=== PATIENT | male | born 1950 | race Caucasian/White ===

== ENCOUNTER → 2019-04-12 | Emergency (ER) | payer MEDICARE ==
[~2019-04-12] VITALS: Ht 177.8 cm; Wt 72.7 kg
[~2019-04-12] MED LIST: ISOSORBIDE MONO60 M1 PO; MULTI-DAY VITAM1 TAB PO; NITROQUICK0.4 MG SL; PLAVIX75 MG PO
--- NOTE | ~2019-04-12 | CN ---
PATIENT NAME:PAOLO HOWE MEDICAL RECORD: [id number] : 54 LOCATION:.ER ADMIT DATE: ACCOUNT: [id number] CONSULTING PHYSICIAN: DEMARIO SYLVESTER MD REFERRING PHYSICIAN: KINDRA NELSON MD DATE OF CONSULTATION: 04/12/2019 DIAGNOSES: 1. Unstable angina. 2. Coronary artery disease. 3. Previous multivessel percutaneous transluminal coronary angioplasty stent. 4. Hypertension. 5. Hyperlipidemia. HISTORY OF PRESENT ILLNESS: Mr. Howe has past history of coronary artery disease, previous PTCA stent by Dr. Lopez and PTCA stent by Dr. Hudson in [place]. He has been having 2 months of increasing chest pain, chest discomfort compatible with angina, it is very similar to that he has had in the past prior to needing a stent and his chest discomfort has increased. He is now in the Emergency Room. His last stent, he thinks, was approximately 4 or [address] Hudson. He had a nuclear stress test, for which he had an extremely bad reaction in the past, this has been over 2 years ago he believes. He is pain free currently in the Emergency Room. His EKG is normal. Troponin is normal. PHYSICAL EXAMINATION: GENERAL APPEARANCE: Well-nourished, well-developed, appears stated age. Level of distress, comfortable. PSYCHIATRIC: Mental status, alert, normal affect. Orientation, oriented to time, place and person. EYES: Lids and conjunctiva, noninjected. No discharge, no pallor. ENT: Lips, teeth, gums, normal dentition. Oropharynx, no cyanosis, no pallor. NECK: Carotid arteries, bilateral normal upstroke, no bruits, no thrills. JUGULAR VEINS: No jugular venous pressure or distention. CERVICAL LYMPH NODES: Nontender, nonenlarged. THYROID: Not enlarged. Nontender. No nodules. LUNGS: Respiratory effort, unlabored. CHEST: Normal curvature. No thoracic deformity. No chest wall tenderness. Percussion, resonant. Auscultation, clear. No wheezes, no rales, no rhonchi. CARDIOVASCULAR: Precordial exam, nondisplaced. No heaves or pericardial thrills. Rate and rhythm, regular. Heart sounds, normal S1, normal S2. No S3, no gallop, no rub. Systolic murmur, not heard. Diastolic murmur, not heard. EXTREMITIES: No cyanosis, no edema. Peripheral pulses, full and equal in all extremities, except as noted. No bruits appreciated. ABDOMEN: Soft, nondistended. Normal aorta. No bruit. Nontender. No masses. Liver, nontender, no hepatomegaly. Spleen, nontender, no splenomegaly. MUSCULOSKELETAL: No joint tenderness. No joint swelling. No erythema. NEUROLOGICAL: Normal gait, normal strength, normal tone. SKIN: Warm and dry. OVERALL IMPRESSION: Accelerated angina in an unstable fashion, most likely he does have hemodynamically significant coronary artery disease that is recurrent. His EKG; however, is normal. He is pain free now. We will risk stratify with stress testing, Cardiolite imaging. Most likely the reaction he had to nuclear stress test was due to the fact that it was a chemical stress test, he thinks it CONSULT REPORT [id number] SANIAPAOLO R was dobutamine that gave him the bad reaction. Hence, he should be fine with the nuclear tracer. Further care depends upon findings of the stress test. TRANSINT:[id number] Voice Confirmation ID: [id number] DOCUMENT ID: [id number] DEMARIO SYLVESTER MD CC: [id number] DICTATION DATE: 04/13/19 1040 PHYSICIAN ASSISTANT: 04/13/19 1446 [facility] [address] [id number]
[2019-04-12 09:18] VITALS: Ht 177.8 cm; Wt 72.7 kg
[2019-04-12 09:41] LABS: BASOPHILS 0.2 % (0-2); EOSINOPHILS 1.5 % (0-7); HEMATOCRIT 43.2 % (42.0-54.0); HEMOGLOBIN 15.5 g/dL (13.5-17.5); IMMATURE GRANULOCYTES 0.2 % (0-5); LYMPHOCYTES 31.7 % (15-50); MCH 32.2 pg (26.0-34.0); MCHC 35.9 g/dL (31.0-37.0); MCV 89.6 fL (80.0-100.0); MEAN PLATELET VOLUME 10.8 fL (7.4-10.4); MONOCYTES 8.3 % (2-11); NEUTROPHILS 58.1 % (40-80); PLATELET COUNT 184 10x3/uL (130-400); RBC 4.82 10x6/uL (4.20-6.10); RDW 12.7 % (11.5-14.5); WBC 6.1 10x3/uL (4.8-10.8)
[2019-04-12 09:48] VITALS: BP 173/85
[2019-04-12 09:51] LABS: INR 0.99 (0.85-1.17); PROTIME 12.6 SECONDS (11.6-15.0)
[2019-04-12 09:59] LABS: ALBUMIN 4.1 g/dL (3.4-5.0); ALKALINE PHOSPHATASE 84 U/L (46-116); ALT (SGPT) 33 U/L (10-68); BILIRUBIN - TOTAL 0.56 mg/dL (0.2-1.3); CALC OSMOLALITY 281 mosm/kg (275-300); CALCIUM 8.9 mg/dL (8.5-10.1); CARBON DIOXIDE 28.6 mmol/L (21.0-32.0); CHLORIDE - SERUM 104 mmol/L (98-107); CREATININE - SERUM 0.9 mg/dL (0.6-1.3); GLUCOSE 105 mg/dL (74-106); POTASSIUM - SERUM 3.9 mmol/L (3.5-5.1); PROTEIN - SERUM 7.5 g/dL (6.4-8.2); SODIUM 141 mmol/L (136-145); UREA NITROGEN 14 mg/dL (7-18); eGFR NON AFRICAN AMERICAN 90 mL/min (90-120)
[2019-04-12 10:07] LABS: CKMB 1.1 U/L (0.0-3.6); CREATINE KINASE 73 UL (21-232); MAGNESIUM - SERUM 2.1 mg/dL (1.8-2.4)
[2019-04-12 10:08] LABS: TROPONIN-I < 0.017 ng/mL (0.000-0.060)
[2019-04-12 10:43] LABS: LDL-HDL RATIO 1.8 ratio (1.5-3.5); THYROID STIMULATING HORMONE 1.6 uIU/mL (0.36-3.74)
== END ==
LOC: D.ER 09:06
PROVIDERS: Emergency Medicine
DX: I20.8 Other forms of angina pectoris (principal)